=== PATIENT | female | born 1985 | race Two or more races ===

== ENCOUNTER 2021-02-08 08:28 | Day surgery (SDC) | payer OTHER ==
[~2021-02-08] VITALS: Ht 162.6 cm; Wt 71.0 kg
[~2021-02-08 08:28] MED LIST: ACET500T68 PO; BUSP10TA PO; DOCU-109 PO; HYDROmorphone 2 MG/ML VIAL IVP PRN; MORPHINE SULFATE 2 MG/ML INJ. IVP PRN; NAPR500T8 PO; POLY17PO29 PO; PROCHLORPERAZINE 10 MG/2 ML VIAL. IVP PRN; ceFAZolin SODIUM IV Push 1 GM VIAL. IVP PRN; fentaNYL PF VIAL 100 MCG/2 ML VIAL IVP PRN
[2021-02-08 08:49] VITALS: BP 105/65
[2021-02-08] MEDS ORDERED: fentaNYL PF VIAL 100 MCG/2 ML VIAL ONE ×2 (08:53→12:33)
[2021-02-08] MEDS ORDERED: MIDAZOLAM HCL/PF 2 MG/2 ML VIAL. ONE (08:54)
[2021-02-08] MEDS: IV RINGERS,LACTATED 1000ML 1,000 ML IV SCH ×2 (09:02→12:49)
[2021-02-08] MEDS ORDERED: DEXAMETHASONE SOD PHOS 4 MG/ML VIAL ONE (09:06)
[2021-02-08] MEDS ORDERED: PROPOFOL 10 MG/ML (20ML) VIAL. IV ONE (09:06)
[2021-02-08] MEDS ORDERED: ONDANSETRON PF 4 MG/2 ML VIAL. ONE (09:06)
[2021-02-08] MEDS ORDERED: LIDOCAINE 1% PF 5 ML VIAL. ONE (09:06)
[2021-02-08] MEDS ORDERED: GLYCOPYRROLATE 1 MG/5 ML VIAL. ONE (09:07)
[2021-02-08] MEDS ORDERED: ROCURONIUM 50 MG/5 ML VIAL. ONE (09:07)
[2021-02-08] MEDS ORDERED: NEOSTIGMINE METHYLSULFATE 5 MG/5 ML SYRINGE. ONE (09:07)
[2021-02-08] MEDS ORDERED: IOHEXOL 300 MG/ML 50 ML VIAL. ONE (10:48)
[2021-02-08] MEDS ORDERED: SURGICEL HEMOSTAT 4X8 EACH. ONE (10:48)
[2021-02-08] MEDS ORDERED: BUPIVACAINE MPF 0.5% 30 ML VIAL. ONE (10:49)
[2021-02-08] MEDS ORDERED: PHENYLEPHRINE 10 MG/ML VIAL. ONE (11:13)
--- NOTE | 2021-02-08 12:16 | RAD ---
DG INTRAOPERATIVE CHOLANGIOGRAM History: Reason: CHOLANGIOGRAM IN OR W/C-ARM, 3 IMAGES, 16 S FLUORO TIME / Spl. Instructions: / Hist ory: Pain. Cholecystectomy. Comparison: None. Technique/findings: Fluoroscopy provided intraoperatively during cholangiogram status post cholecystectomy. No common or intrahepatic biliary ductal dilatation. Contrast flows into the small bowel. See procedure note for further details. Fluoroscopy time: 16 seconds Number of fluoroscopic images: 3 Impression: 1. Fluoroscopy provided intraoperatively during cholangiogram. No evidence of common bile duct obstr uction. Electronically signed by: Nilesh Barragan DO (02/08/2021 12:13 PM) [id number]
[2021-02-08] MEDS ORDERED: oxyCODONE/APAP 5/325 1 TAB TABLET PO ONE (12:30)
[2021-02-08] MEDS ORDERED: PROCHLORPERAZINE 10 MG/2 ML VIAL. ONE (12:33)
--- NOTE | 2021-02-08 12:39 | PDOC4 ---
Operative Note Operative Note Operative Note: Preoperative Diagnosis: Calculus cholecystitis Postoperative Diagnosis: Same Procedure: Laparoscopic cholecystectomy with intraoperative cholangiogram Surgeons: Dylan Anesthesia: Gen. Estimated Blood Loss: 10 mL Specimen: Gallbladder to pathology Drains: None Complications: None Indications: The patient is a 35 year old female who was referred due to calculous cholecystitis. Surgical treatment was offered by means of a laparoscopic cholecystectomy. The risks of surgery were discussed which include bleeding, infection, bile duct injury, bile leak, pain, the potential for additional surgeries or procedures. The patient understands and would like to proceed. Description: The patient was taken to the operating room and laid supine on the operating table. General anesthesia was performed. The abdomen was prepped with ChloraPrep and draped in a standard surgical fashion. A small infraumbilical incision was made with a scalpel. The Veress needle was then inserted and a pneumoperitoneum was then created. A 5 mm trocar was then inser frantz and the laparoscope was introduced. In the upper midabdomen a 5 mm trocar was inserted and in the right upper quadrant two 2.3 mm mini lap graspers were inserted. The gallbladder was retracted cephalad. The cystic duct was dissected free from surrounding tissues. One clip was placed on the duct near the gallbladder junction. An opening was made in the duct and a cholangioc atheter placed within and secured with a clip. Using contrast dye and fluoroscopy an intraoperative cholangiogram was performed that appeared unremarkable. The clip and catheter were then withdrawn. Three clips were placed on the cystic duct and it was divided. The cystic artery was then identified, dissected free, doubly clipped and divided as well. The gallbladder was then mobilized away from the liver with cautery. The umbilical 5 millimeter trocar was exchanged for an 11 millimeter trocar. The gallbladder was then placed in an endoscopic bag and extracted at the umbilical trocar site. The fascia there was closed with 0 PDS sutures and infiltrated with 0.5% marcaine. All blood and irrigation fluid was suctioned and hemostasis was good. The remai dawson ports were removed and the pneumoperitoneum was relieved. The skin incisions were closed using 4-0 Monocryl suture. Steri-Strips and dressings were then applied. The patient tolerated the procedure well and was sent to the recovery room in stable condition. At the end of the case all counts were correct. NAT NAIK MD Feb 08, 2021 12:39
--- NOTE | 2021-02-08 12:41 | DISCH ---
DISCHARGE INSTRUCTIONS Condition on Discharge Condition on Discharge: Stable Activity After Discharge Activity Instructions for Disc: Other, see below (no lifting over 20 lbs or strenuous activity X 2 weeks) Diet after Discharge Diet after Discharge: Regular Wound Incision Care Wound/Incision Care: Other, see below (may remove bandaids tomorrow and shower) Follow-Up Follow up with: Dr Naik in 2 weeks in office, NAT NAIK MD Feb 08, 2021 12:41
[2021-02-08] MEDS: fentaNYL PF VIAL 100 MCG/2 ML VIAL IVP PRN ×2 (12:44→12:48)
[2021-02-08] MEDS ORDERED: KETOROLAC 30 MG/ML VIAL. IVP ONE (13:30)
[2021-02-08 13:50] VITALS: BP 109/58
--- NOTE | 2021-02-09 15:12 | PATHOLOGY ---
[facility] Accession Number: [id number] . 01 Material submitted: . gallbladder - GALLBLADDER AND CONTENTS . 01 Clinical history: . CHOLELITHIASIS LAPARSCOPY CHOLECYSTECTOMY WITH CHOLINGIOGRAMS . 02 Diagnosis: Gallbladder and focal attached liver tissue, laparoscopic cholecystectomy: - Cholelithiasis. - Chronic cholecystitis. (NATALIEM:nathalie; 02/09/2021) MBR 02/09/2021 1404 Local . 02 Comment: There is no evidence of malignancy. (NATALIEM:nathalie; 02/09/2021) . 02 Electronically signed: . Guille Alston MD, Pathologist NPI- [id number] . 01 Gross description: . Fixative: Formalin Labeled: Gallbladder and contents Specimen received: Intact gallbladder Dimensions: 6.4 x 2.7 x 1.7 cm Serosa: [place]gonzalez, smooth Lymph node: None identified Mucosa: Velvety, bile-stained Average wall thickness: Up to 0.4 cm Calculi: Multiple present displaying a bright yellow, multifaceted appearance Abnormalities: None identified . A1- [employer] body, fundus, and the cystic duct margin. ([facility]; 02/08/2021) NRI/NRI 02/08/2021 1918 Local . 02 Pathologist provided ICD-10: K80.10 . 02 CPT . 061374 Specimen Comment: A courtesy copy of this report has been sent to [phone] Specimen Comment: Report sent to Performed at: 01 [facility] [address], [place] [id number] MD Codey Castellon MD Phone: [phone] Performed at: [facility] [address], [place] [id number] MD Guille Alston MD Phone: [phone]
== END 2021-02-08 14:26 | disposition home or self-care (01) ==
LOC: SURG 08:28 → EEVIPCON 10:30 → SURG 14:26
PROVIDERS: ATTEND Surgery
DX: K80.10 Calculus of gallbladder with chronic cholecystitis without obstruction (principal); F41.9 Anxiety disorder, unspecified; F32.9 Major depressive disorder, single episode, unspecified; Z87.440 Personal history of urinary (tract) infections; Z98.51 Tubal ligation status; Z98.890 Other specified postprocedural states; Z79.899 Other long term (current) drug therapy
CPT/HCPCS: 47563; 74300; 81025; 88304; A4213; A4314; A4364; A4930; A6219; C1887; J0690; J0780; J1100; J2250; J2370; J2405; J2704; J2710; J3010; J3490; Q9967; A4452; A4657